=== PATIENT | female | born 1975 | race Caucasian/White ===

== ENCOUNTER → 2018-09-06 12:45 | Outpatient (CLI) | payer MEDICAID, SELFPAY ==
[2018-09-06 13:50] LABS: Erythrocyte Sedimentation Rate 7 mm/hr (0-20)
[2018-09-06 13:53] LABS: Absolute Lymphocyte Count 2.38 X10^3/ul (0.83-4.51); Absolute Neutrophil Count 5.2 X10^3/uL (2.0-7.7); Basophil# 0.02 X10^3/uL; Basophil% 0.2 % (0-1); Eosinophil# 0.07 X10^3/uL; Eosinophils% 0.9 % (0-5); Hematocrit 44.5 % (37-47); Hemoglobin 14.3 g/dl (12.0-15.0); Lymphocyte # 2.38 X10^3/ul (4.0); Lymphocyte % 29.1 % (19-41); Mean Corp Hgb Conc 32.1 g/gl (32-36); Mean Corpuscular Hgb 29.1 pg (27.0-32.0); Mean Corpuscular Volume 90.4 fL (81-99); Monocyte# 0.55 X10^3/uL; Monocyte% 6.7 % (0-10); Neutrophil # 5.15 X10^3/uL (2.7-7.7); POSITIVE COUNT NO; POSITIVE DIFFERENTIAL NO; POSITIVE MORPHOLOGY NO; Platelet Count 349 K/mm3 (150-450); RBC Distribution Width CV 13.4 % (11.6-14.6); RBC Distribution Width SD 43.3 fl (35.1-43.9); Red Blood Count 4.92 M/mm3 (4.2-5.4); White Blood Count 8.2 K/mm3 (4.4-11.0)
[2018-09-06 14:08] LABS: Hemoglobin A1c 5.5 % (4.2-6.3)
[2018-09-06 14:13] LABS: Vitamin D,25 Hydroxy 44.4 ng/mL (29.95-100.01)
[2018-09-06 14:27] LABS: ALB/GLOB Ratio 1.1 RATIO (0.9-2.4); AST(SGOT) 15 U/L (15-37); Alanine Aminotransfer ALT/SGPT 27 U/L (13-56); Albumin, Serum 3.8 g/dL (3.2-5.0); Alkaline Phosphatase 70 U/L (45-117); Anion Gap 9 (5-15); BUN 19 mg/dL (7-18); BUN/Creat Ratio 20.9 RATIO (10-20); CRP < 2.90 mg/L (0.0-3.0); Calcium,Total 8.9 mg/dL (8.5-10.1); Chloride 106 mmol/L (98-107); Cholesterol 182 mg/dL (200); Creatinine, Serum 0.91 mg/dL (0.55-1.02); EST Glomerular Filtration Rate 72 mL/min (>60); Est Glom Filt Rate - Afr Amer 87 mL/min (>60); Globulin 3.5 g/dL (2.2-4.2); Glucose 102 mg/dL (74-106); High Density Lipoprotein 44 mg/dL; Potassium 4.2 mmol/L (3.5-5.1); Protein, Total 7.3 g/dL (6.4-8.2); Sodium Level 142 mmol/L (136-145); Thyroid Stim Hormone (TSH) 1.01 uIU/mL (0.358-3.74); Triglycerides 187 mg/dL; Very Low Density Lipoprotein 37 mg/dL (5-40)
== END ==
PROVIDERS: Family Provider Family Medicine; PCP Family Medicine; Referring Provider Family Medicine; Visit Provider Family Medicine
DX: M79.7 Fibromyalgia (principal); F31.9 Bipolar disorder, unspecified; E55.9 Vitamin D deficiency, unspecified; J45.30 Mild persistent asthma, uncomplicated; E66.9 Obesity, unspecified; Z79.899 Other long term (current) drug therapy
CPT/HCPCS: 36415; 80053; 80061; 82306; 83036; 84443; 85025; 85652; 86140

== ENCOUNTER → 2022-12-18 | Outpatient (CLI) | payer MEDICAID, SELFPAY ==
[2022-12-18 15:54] LABS: Absolute Neutrophil Count 7.4 X10^3/uL (2.0-7.7); Basophil# 0.04 X10^3/uL; Basophil% 0.4 % (0-1); Eosinophil# 0.13 X10^3/uL; Eosinophils% 1.2 % (0-5); Hematocrit 43.7 % (37-47); Hemoglobin 14.2 g/dL (12.0-15.0); Lymphocyte % 20.8 % (19-41); Mean Corp Hgb Conc 32.5 g/dL (32-36); Mean Corpuscular Volume 92.2 fL (81-99); Mean Platelet Vol. 9.7 fl (6.2-12.0); Monocyte# 0.63 X10^3/uL; Monocyte% 5.9 % (0-10); NRBC Flagged by Analyzer 0 % (0-5); Neutrophil # 7.36 X10^3/uL (2.7-7.7); Neutrophil % 69.5 % (47-70); Platelet Count 381 K/mm3 (150-450); RBC Distribution Width CV 13.5 % (11.6-14.6); RBC Distribution Width SD 46.5 fl (35.1-43.9); Red Blood Count 4.74 M/mm3 (4.2-5.4); White Blood Count 10.6 K/mm3 (4.4-11.0)
[2022-12-18 16:14] LABS: AST(SGOT) 16 U/L (15-37); Alanine Aminotransfer ALT/SGPT 30 U/L (13-56); Albumin, Serum 3.5 g/dL (3.2-5.0); Alkaline Phosphatase 72 U/L (45-117); Amylase 38 U/L (25-115); Anion Gap 6 (5-15); BUN 16 mg/dL (7-18); BUN/Creat Ratio 22.2 RATIO (10-20); CRP 5.19 mg/L (0.0-3.0); Calcium,Total 8.7 mg/dL (8.5-10.1); Chloride 105 mmol/L (98-107); Creatinine, Serum 0.72 mg/dL (0.55-1.02); EST Glomerular Filtration Rate 92 mL/min (>60); Est Glom Filt Rate - Afr Amer 112 mL/min (>60); Ferritin 74 ng/mL (8-252); Globulin 3.6 g/dL (2.2-4.2); Glucose 91 mg/dL (74-106); Iron 73 ug/dL (50-170); Iron Binding Capacity,Total 456 ug/dL (250-450); LDH 195 U/L (84-246); Lipase 37 U/L (13-75); Potassium 3.8 mmol/L (3.5-5.1); Protein, Total 7.1 g/dL (6.4-8.2); Sodium Level 138 mmol/L (136-145)
[2022-12-18 16:26] LABS: Erythrocyte Sedimentation Rate 20 mm/hr (0-30)
[2022-12-21 15:08] LABS: Endomysial Antibody IgA Negative (Negative); Immunoglobulin A 46 mg/dL (87-352); t-Transglutaminase IgA <2 U/mL (0-3)
[2022-12-23 22:07] LABS: Almond <0.10 kU/L (Class 0); Anti-Centromere B Ab <0.2 AI (0.0-0.9); Anti-Chromatin <0.2 AI (0.0-0.9); Anti-Jo <0.2 AI (0.0-0.9); Anti-Scleroderma-70 AB <0.2 AI (0.0-0.9); Anti-dsDNA Ab 2 IU/mL (0-9); Anti-ribosomal P Antibodies <0.2 AI (0.0-0.9); Barley, Whole Grain <0.10 kU/L (Class 0); Beef <0.10 kU/L (Class 0); Carrot <0.10 kU/L (Class 0); Casein <0.10 kU/L (Class 0); Cashew <0.10 kU/L (Class 0); Chicken <0.10 kU/L (Class 0); Chocolate <0.10 kU/L (Class 0); Clam <0.10 kU/L (Class 0); Codfish <0.10 kU/L (Class 0); Corn <0.10 kU/L (Class 0); Crab <0.10 kU/L (Class 0); Egg, White <0.10 kU/L (Class 0); Egg, Whole <0.10 kU/L (Class 0); Egg, Yolk <0.10 kU/L (Class 0); Garlic <0.10 kU/L (Class 0); Gluten <0.10 kU/L (Class 0); Hazelnut/Filbert <0.10 kU/L (Class 0); Lobster <0.10 kU/L (Class 0); Milk (Cow) <0.10 kU/L (Class 0); Oat <0.10 kU/L (Class 0); Onion <0.10 kU/L (Class 0); Orange <0.10 kU/L (Class 0); Pea <0.10 kU/L (Class 0); Peanut <0.10 kU/L (Class 0); Pecan <0.10 kU/L (Class 0); Pork <0.10 kU/L (Class 0); Potato, White <0.10 kU/L (Class 0); RNP Ab <0.2 AI (0.0-0.9); Rice <0.10 kU/L (Class 0); Rye <0.10 kU/L (Class 0); SJOGREN'S Anti-SS-A test < 0.2 AI (0.0-0.9); SJOGREN'S Anti-SS-B test < 0.2 AI (0.0-0.9); Salmon <0.10 kU/L (Class 0); Shrimp <0.10 kU/L (Class 0); Smith Ab <0.2 AI (0.0-0.9); Smith/RNP Ab <0.2 AI (0.0-0.9); Soybean <0.10 kU/L (Class 0); Strawberry <0.10 kU/L (Class 0); Tomato <0.10 kU/L (Class 0); Tuna <0.10 kU/L (Class 0); Walnut, (Food) <0.10 kU/L (Class 0); Wheat <0.10 kU/L (Class 0); Yeast <0.10 kU/L (Class 0)
[2023-01-01 12:35] LABS: Apple <0.10
[2023-01-01 12:36] LABS: Banana <0.10
[2023-01-01 12:39] LABS: Beef <0.10
== END | disposition home or self-care (01) ==
PROVIDERS: PCP Student in an Organized Health Care Education/Training Program; Referring Provider Internal Medicine Gastroenterology; Visit Provider Internal Medicine Gastroenterology
DX: R19.7 Diarrhea, unspecified (principal); K58.9 Irritable bowel syndrome, unspecified
CPT/HCPCS: 36415; 80053; 82150; 82164; 82728; 82784; 82785; 82941; 83516; 83540; 83550; 83615; 83690; 84165; 85025; 85652; 86003; 86005; 86038; 86140; 86225; 86235; 86255; 86256; 86334

== ENCOUNTER → 2022-12-21 | Outpatient (CLI) | payer MEDICAID, SELFPAY ==
[2022-12-25 14:09] LABS: Pancreatic Elastase, Fecal > 500 (>200)
[2022-12-25 15:08] LABS: Calprotectin, Stool 19 ug/g (0-120); Fats, Neutral Normal (.); Fats, Total Normal (.)
== END | disposition home or self-care (01) ==
LOC: LABSPEC 11:40
PROVIDERS: PCP Family Medicine; Referring Provider Internal Medicine Gastroenterology; Visit Provider Internal Medicine Gastroenterology
DX: R19.7 Diarrhea, unspecified (principal); K58.9 Irritable bowel syndrome, unspecified
CPT/HCPCS: 82653; 82705; 83630; 83993; 87177; 87209; 87329; 87493; 87506

== ENCOUNTER 2023-03-09 13:36 | Day surgery (SDC) | payer MEDICAID, SELFPAY ==
[2023-03-09] VITALS (7 sets, daily range): BP systolic 121–147; BP diastolic 89–97; PULSE 86–101; RESP 17–96; TEMP 36.6–37; O2SAT 20–100; BMI 37.2
[2023-03-09] MEDS: Lactated Ringers 1,000 ML 15 ML IV (14:11)
--- NOTE | 2023-03-09 14:45 | IMM_PTH ---
PATIENT: JUD ROBLEDO LOC: EN U#:[id number] AGE/SX: 47/F ROOM: RE03/09/[address]: Dr. Felipe Rojas DO : 1975 BED: DIS: 03/09/2023 SPEC #: [id number] RECD: 03/10/23 14:37 STATUS: AYE REQ #: [id number] PRAKASH: 03/09/23 14:[address]: Felipe Rojas DEPT: IMMUNOHISTOCHEMISTRY RECD BY: Nga Jung ENTERED: 03/10/23 14:38 SP TYPE: IMMUNO OTHR DR: Dr. Barbara Romero MD Tissues: B - Stomach, NOS Procedures: H Pylori (initial) PHYSICIAN & INSTITUTION [facility] [id number] SPECIMEN INFORMATION: Tissue Source: B - Gastric body Clinical Info: Diarrhea Specimen Number: [id number] CPT code: 27340 METHODOLOGY: Deparaffinized sections of prefer/formalin-fixed tissue or PAP/DQ stained slides are incubated with monoclonal/polyclonal antibodies/oligonucleotide probes. Localization is made via biotin free immunoperoxidase method. Appropriate controls are performed and reacted as expected. Results on target cell population are indicated in the following table: RESULTS: ANTIBODY / CLONE RESULT Block B H Pylori (polyclonal) negative These tests were developed and their performance characteristics determined by [facility]. They may not have been cleared or approved by the U.S. Food and Drug Administration. The FDA has determined that such clearance or approval is not necessary. The above immunohistochemical/dualISH markers are ordered and reviewed by the Pathologist. INTERPRETATION: B. Gastric body, biopsy: Negative for Helicobacter pylori organisms. SJ:karley 03/11/2023
--- NOTE | 2023-03-09 14:49 | PCM.HP.BLA ---
History and Physical Date of Admission: 03/09/23 47 F who presents to the office today for initial consult. GI Hx IBS, constipation, diarrhea (C.diff tested with ag+, toxin -), GERD PSH cholecystectomy , SCC, BCC, asthma. FH father colon cancer age 38.? ? [facility] general surgery Dr. Nunes OV as f/u for [facility] hospitalization 08.03.22-08.10.22 for surgical site infection. During visit it is noted she had difficulty with persistent abdominal pain and blood in stool. She did undergo colonoscopy at age 29 for screening purposes r/t father colon cancer history. ?[facility] hospitalization course with noted C.Diff treatment with flagyl and treatment cellulitis which required surgical intervention.?CT abd/pel 08.03.22?RUQ/periumbilical fat stranding consistent with surgery? Pt states sx started April 2022 with watery diarrhea and RLQ abdominal pain. Has BM sometimes more than once in a day and still has diarrhea with some urgency. If she goes more than one time a day will see bright red blood in stool with Jelly-like consistency. Has RLQ pain intermittently throughout the day that is worse when having a BM. After cholecystectomy she has eliminated fried, fatty foods and oils. Has tried OTC meds for diarrhea with no relief. Dx with GERD in 2010 and is stable with Prevacid. ROS Const Constitutional: Positive for fatigue, frequent falls and headache(s) ENT ENT: Positive for headache(s); No difficulty swallowing Gastro GI: Positive for abdominal pain, diarrhea, heartburn, Blood in stool and nausea/dyspepsia; No belching, bloating, change in bowel habits, change in stool character, coffee ground emesis, constipation, cramping, difficulty swallowing, feeling full early, excessive flatus, incontinent of stools, Vomiting blood/hematemesis, loose stools, Black,tarry stools, pain with swallowing, vomiting or other Musc Musculoskeletal: Positive for abnormal gait, joint pain, back pain and stiffness Skin Skin: No yellowing of the eye or itchy eyes Neuro Neurology: Positive for abnormal gait, frequent falls and headache(s) Psych Psychiatric: Positive for anxiety and Positive for depression Endo Endocrine: Positive for fatigue Aller/Imm Allergy/Immunologic: No itchy eyes Cole/Lymp Hematologic/Lymphatic: No easy bleeding or easy bruising Exam Const General: cooperative and comfortable Nutritional Appearance: average body habitus and well nourished [facility] Head: normal to inspection Ears: hearing grossly normal bilaterally Nose: external nose normal Face and sinus: normal facial exam Mouth: oral mucosae normal Throat: posterior oropharynx normal Eyes General: appearance normal, both eyes and all related structures Neck Neck: normal visual inspection Chest Chest palpation & inspection: normal inspection of the chest and normal palpation of entire chest wall Resp Effort & Inspection: normal respiratory effort Auscultation: Bilateral: Clear to Auscultation Cardio Palpation: normal PMI Rate: regular rate Rhythm: regular rhythm GI Inspection: normal to inspection Auscultation: normal bowel sounds Percussion: normal to percussion Palpation: no hepatosplenomegaly Skin General: no rashes or lesions noted Neuro General: patient alert Extrem General: normal to inspection Psych Affect: normal affect Quality Reporting Tobacco Screening ([facility] 138) Smoking Status: Never smoker Assessment and Plan Assessment and Plan (1) Diarrhea: Status: Acute Plan: Differential diagnosis for her diarrhea does include osmotic versus secretory diarrhea. We will perform stool test, biochemical analysis and look for possible infectious etiologies. She underwent colonoscopy to the cecum. She was told that everything was normal. I do not have the pathology from biopsies to look for microscopic colitis but I am assuming that that was normal. She will need evaluation of the small bowel including MR enterography and possible capsule endoscopy. But this will depend on what her biochemical work-up shows. She is okay with this plan. Orders: Orders Amylase Today R19.7 - Diarrhea, unspecified Comprehensive Metabolic Profil Today R19.7 - Diarrhea, unspecified CRP Today R19.7 - Diarrhea, unspecified Ferritin Today R19.7 - Diarrhea, unspecified LDH Today R19.7 - Diarrhea, unspecified Lipase Today R19.7 - Diarrhea, unspecified Iron Binding Capacity,Total Today R19.7 - Diarrhea, unspecified CBC W/Diff, Automated Today R19.7 - Diarrhea, unspecified Erythrocyte Sed Rate Today R19.7 - Diarrhea, unspecified ANDREA Comprehensive Panel Today R19.7 - Diarrhea, unspecified Calprotectin, Stool Today R19.7 - Diarrhea, unspecified Fecal Fat, Qualitative Today R19.7 - Diarrhea, unspecified CDIFF (PCR) Today R19.7 - Diarrhea, unspecified ENTERIC PATHOGEN PANEL STOOL Today K58.9 - Irritable bowel syndrome without diarrhea, R19.7 - Diarrhea, unspecified Stool Lactoferrin/WBC Today K58.9 - Irritable bowel syndrome without diarrhea, R19.7 - Diarrhea, unspecified Angiotensin Convert Enzyme Today R19.7 - Diarrhea, unspecified ANCA Today R19.7 - Diarrhea, unspecified Celiac Disease Profile Today R19.7 - Diarrhea, unspecified Immunoglobulin A Today R19.7 - Diarrhea, unspecified Immunoglobulin E Today R19.7 - Diarrhea, unspecified SHAHRZAD + Protein Elect, Serum Today R19.7 - Diarrhea, unspecified Immunoglobulin G Today R19.7 - Diarrhea, unspecified Immunoglobulin M Today R19.7 - Diarrhea, unspecified Pancreatic Elastase, Fecal Today R19.7 - Diarrhea, unspecified Miscellaneous Lab Procedure Today R19.7 - Diarrhea, unspecified OVA+PARA w/Giardia EIA [id number] Today R19.7 - Diarrhea, unspecified Gastrin, Serum Today R19.7 - Diarrhea, unspecified Miscellaneous Lab Procedure 2 Today R19.7 - Diarrhea, unspecified Allergen, Rast Food Profile Today R19.7 - Diarrhea, unspecified, T78.40XA - Allergy, unspecified, initial encounter Allergen, Food Profile Today R19.7 - Diarrhea, unspecified, T78.40XA - Allergy, unspecified, initial encounter I have examined the patient and the H&P has been reviewed. There are no clinical changes since date of exam.
--- NOTE | 2023-03-09 16:19 | OP.CCLET_ITS ---
03/09/2023 Jose Hugo [address] [place] [address] Re : Upper GI endoscopy procedure for Francine Avery Dear Dr. Hugo This procedure was performed on Thursday, March 09, 2023. My impressions and recommendations are as follows: Impressions : - Normal esophagus. - Small hiatal hernia. - Erythematous mucosa in the gastric body. Biopsied. - Erythematous mucosa in the gastric body. Biopsied. - Erythematous duodenopathy. Biopsied. Recommendations : - Discharge patient to home. - Continue present medications. - Colestipol 2gm twice daily My findings are described in the full procedure note, which is enclosed. If I can be of further assistance, please feel free to contact me at . Sincerely, Felipe Rojas, 03/09/2023 4:18:57 PM This report has been signed electronically.
--- NOTE | 2023-03-09 16:19 | OP.EGD_ITS ---
Patient Name: Francine Avery Procedure Date: 03/09/2023 2:48 PM Date of : 1975 Age: 47 Procedure: Upper GI endoscopy Indications: Epigastric abdominal pain, Functional Dyspepsia Providers: Feilpe Rojas DO Medicines: Monitored Anesthesia Care Patient Profile: This is a 47 year old female. Refer to note in patient chart for documentation of history and physical. Patient has symptoms of chronic global abdominal pain and chronic nausea. She is status post laparoscopic cholecystectomy. Complications: No immediate complications. Procedure: Pre-Anesthesia Assessment: - Prior to the procedure, a History and Physical was performed, and patient medications and allergies were reviewed. The patient is competent. The risks and benefits of the procedure and the sedation options and risks were discussed with the patient. All questions were answered and informed consent was obtained. Patient identification and proposed procedure were verified by the physician in the pre-procedure area. Mental Status Examination: alert and oriented. Airway Examination: normal oropharyngeal airway and neck mobility. Respiratory Examination: clear to auscultation. Prophylactic Antibiotics: The patient does not require prophylactic antibiotics. Prior Anticoagulants: The patient has taken no anticoagulant or antiplatelet agents. ASA Grade Assessment: II - A patient with mild systemic disease. After reviewing the risks and benefits, the patient was deemed in satisfactory condition to undergo the procedure. The anesthesia plan was to use monitored anesthesia care (MAC). Immediately prior to administration of medications, the patient was re-assessed for adequacy to receive sedatives. The heart rate, respiratory rate, oxygen saturations, blood pressure, adequacy of pulmonary ventilation, and response to care were monitored throughout the procedure. The physical status of the patient was re-assessed after the procedure. After obtaining informed consent, the endoscope was passed under direct vision. Throughout the procedure, the patient's blood pressure, pulse, and oxygen saturations were monitored continuously. The Endoscope was introduced through the mouth, and advanced to the second part of duodenum. The upper GI endoscopy was accomplished without difficulty. The patient tolerated the procedure well. Scope In: 3:57:17 PM Scope Out: 4:01:38 PM Total Procedure Duration Time 0 hours 4 minutes 21 seconds Findings: The examined esophagus was normal. A small hiatal hernia was present. Patchy mildly erythematous mucosa without bleeding was found in the gastric body. Biopsies were taken with a cold forceps for Helicobacter pylori testing. Verification of patient identification for the specimen was done. Estimated blood loss was minimal. Localized mildly erythematous mucosa without bleeding was found in the gastric body. Biopsies were taken with a cold forceps for histology. Verification of patient identification for the specimen was done. Estimated blood loss was minimal. Diffuse moderately erythematous mucosa without active bleeding and with no stigmata of bleeding was found in the duodenal bulb, in the first portion of the duodenum and in the second portion of the duodenum. Biopsies were taken with a cold forceps for histology. Verification of patient identification for the specimen was done. Estimated blood loss was minimal. Impression: - Normal esophagus. - Small hiatal hernia. - Erythematous mucosa in the gastric body. Biopsied. - Erythematous mucosa in the gastric body. Biopsied. - Erythematous duodenopathy. Biopsied. Recommendation: - Discharge patient to home. - Continue present medications. - Colestipol 2gm twice daily Procedure Code(s): --- Professional --- 85862, Esophagogastroduodenoscopy, flexible, transoral; with biopsy, single or multiple CPT copyright 2021 [employer]. All rights reserved. The codes documented in this report are preliminary and upon label coder review may be revised to meet current compliance requirements. Felipe Rojas DO 03/09/2023 4:18:57 PM This report has been signed electronically. Number of Addenda: 0 Note Initiated On: 03/09/2023 2:48 PM
--- NOTE | 2023-03-10 | EGD_PTH ---
PATIENT: JUD ROBLEDO LOC: EN U#:[id number] AGE/SX: 47/F ROOM: RE03/09/[address]: Dr. Felipe Rojas DO : 1975 BED: DIS: 03/09/2023 SPEC #: [id number] RECD: 03/10/23 11:42 STATUS: AYE REMahamed #: [id number] PRAKASH: 03/10/23 00:[address]: Felipe Rojas DEPT: SURGICAL PATHOLOGY RECD BY: Amrita Goff ENTERED: 03/10/23 13:28 SP TYPE: EGD BIOPSY [facility] DR: Dr. Barbara Romero MD Tissues: A - Duodenum, NOS B - Gastric mucous membrane Procedures: Surgery Specimen Level IV HEADER OPERATION: EGD with biopsies PRE-OP DIAGNOSIS: Diarrhea TISSUE SUBMITTED: A - Duodenum, B - Gastric body MICROSCOPIC DIAGNOSIS A. Duodenum, biopsy: Fragments of duodenal mucosa with Jeremiah gland hyperplasia. B. Gastric body, biopsy: Mild gastritis. See microscopic description and comment. RAISSA:karley 03/11/2023 COMMENT B. The results of immunohistochemistry for Helicobacter pylori will be reported separately ([id number]). MICROSCOPIC DESCRIPTION Slides are reviewed. B. The specimen shows fragments of gastric mucosa with chronic inflammatory cell infiltrates in the lamina propria consisting of lymphocytes and plasma cells, consistent with mild chronic gastritis. GROSS DESCRIPTION A - Received in fixative is one container labeled with the patient's name and designated duodenum biopsy. The specimen consists of two irregular fragments of light braswell soft tissue that in aggregate measure 0.8 x 0.3 x 0.1 cm. The specimen is totally submitted in one cassette. B - Received in fixative is one container labeled with the patient's name and designated gastric body. The specimen consists of two irregular fragments of light braswell soft tissue that in aggregate measure 0.8 x 0.4 x 0.1 cm. The specimen is totally submitted in one cassette. / RAISSA:karley 03/10/2023 TC:3 CPT: 17046 x2
== END 2023-03-09 17:01 | disposition home or self-care (01) ==
LOC: EN 13:39 → AC 13:40
PROVIDERS: PCP Student in an Organized Health Care Education/Training Program; Referring Provider Student in an Organized Health Care Education/Training Program; Visit Provider Internal Medicine Gastroenterology
PROC: 0DJ08ZZ Inspection of Upper Intestinal Tract, Via Natural or Artificial Opening Endoscopic (ICD-10-PCS; CPT 43235; principal; 2023-03-09 14:40)
DX: K31.89 Other diseases of stomach and duodenum (principal); K44.9 Diaphragmatic hernia without obstruction or gangrene; Z90.49 Acquired absence of other specified parts of digestive tract; K21.9 Gastro-esophageal reflux disease without esophagitis; R51.9 Headache, unspecified; K92.1 Melena; F41.9 Anxiety disorder, unspecified; K29.70 Gastritis, unspecified, without bleeding; E66.9 Obesity, unspecified; F32.A Depression, unspecified; Z79.899 Other long term (current) drug therapy
CPT/HCPCS: 43239; 88305; 88342; J7120; J2405

== ENCOUNTER → 2023-03-17 | Outpatient (CLI) | payer MEDICAID, SELFPAY ==
--- NOTE | 2023-03-17 08:59 | RDU_ITS ---
Reason For Study: Ischemic Colitis Aorta Proximal abdominal aorta 1.97 x 1.97 cm . Proximal abdominal aorta peak systolic velocity is 70.5/11.9 cm/sec . Distal abdominal aorta 1.46 x 1.41 cm . Distal abdominal aorta peak systolic velocity is 72.4/8.1 cm/sec . . Celiac A - 172.5/58.4 cm/s Celiac A W/Insp - 144.0/45.2 cm/s Celiac A W/Exp - 159.3/60.3 cm/s Hepatic A - 146.2/36.4 cm/s Splenic A - 100.1/25.5 cm/s SMA [place] - 229.6/30.1 cm/s SMA [place] W/Insp - 190.7/37.8 cm/s SMA [place] W/Exp - 219.2/32.6 cm/s SMA Prox - 195.9/24.9 cm/s SMA Mid - 138.9/24.9 cm/s SMA Dist - 107.8/22.3 cm/s KALA BERLIN - 107.8/19.7 cm/s KALA Prox - 102.6/14.5 cm/s. Procedures Mesenteric Artery Duplex. VL/Renal Artery Duplex Ultrasound Interpretation Summary Celiac artery patent with normal velocities and no evidence of stenosis Superior mesenteric artery patent with normal velocities and no evidence of andi nosis Inferior mesenteric artery patent with normal velocities and no evidence of andi nosis Ordering Physician: Felipe Rojas Referring Physician: Barbara Romero Performed By: Tanner Evans RVT
== END | disposition home or self-care (01) ==
LOC: CVS 08:57
PROVIDERS: PCP Student in an Organized Health Care Education/Training Program; Referring Provider Internal Medicine Gastroenterology; Visit Provider Internal Medicine Gastroenterology
DX: R19.7 Diarrhea, unspecified (principal); K55.9 Vascular disorder of intestine, unspecified
CPT/HCPCS: 93975

== ENCOUNTER → 2023-04-08 | Outpatient (CLI) | payer MEDICAID, SELFPAY ==
--- NOTE | 2023-04-08 12:53 | CT_ITS ---
INDICATION: Abd pain, Diarrhea yue IBD EXAMINATION: CTA abdomen and pelvis - TECHNIQUE: Routine abdominal CT angiogram protocol was performed with IV contrast. MIP images provided. A radiation dose optimization technique was used for this scan. IV Contrast dosage and agent: 100 cc of Isovue-370. Radiation dose DLP 1189.75 mGy / cm. The CTDI is 25.61. COMPARISON: None. FINDINGS: Lung bases: Normal. Liver: Normal. No bile ductal dilatation. Gallbladder: Status post cholecystectomy. Spleen: Normal. Adrenal gland: Normal. Kidneys: Normal. No hydronephrosis or stone formation. Pancreas:Normal. Bowel gas pattern: Nonobstructive. The colon is decompressed. Appendix: Not visualized consistent with known history of prior appendectomy. Free air: None. Free fluid: None. Pelvis: Pelvic organs: Status post hysterectomy. Bone survey: Mild spondylosis, otherwise unremarkable bony structures. No acute fracture or subluxation. Adenopathy: No significant pathologic adenopathy detected. Other: No focal mass or fluid collection seen. Vascular: Normal aorta with no dissection, aneurysm or stenosis. Normal aortic branches. Normal iliofemoral arteries. CT/CTA Abd/Pelvis W/WO Contrast IMPRESSION: Decompressed colon, nonspecific. Otherwise no acute process within the abdomen and pelvis. Electronically Signed: Kriss Villafuerte MD at 23:05 EDT ,
== END | disposition home or self-care (01) ==
LOC: CT 12:53
PROVIDERS: PCP Student in an Organized Health Care Education/Training Program; Referring Provider Internal Medicine Gastroenterology; Visit Provider Internal Medicine Gastroenterology
DX: R19.7 Diarrhea, unspecified (principal); R10.9 Unspecified abdominal pain
CPT/HCPCS: 74174; Q9967; A4216